=== PATIENT | male | born 1955 | race Caucasian/White ===

== ENCOUNTER → 2020-07-16 20:05 | Outpatient (CLI) | payer MEDICARE | END | disposition home or self-care (01) | LOC: D.LABREF 20:05 | PROVIDERS: ATTEND Podiatrist Foot & Ankle Surgery | DX: L03.116 Cellulitis of left lower limb (principal) ==

== ENCOUNTER 2021-04-23 05:40 | Day surgery (SDC) | payer MEDICARE ==
[2021-04-21 11:02] LABS: BASOPHILS 0.7 % (0-2); EOSINOPHILS 0.3 % (0-7); HEMOGLOBIN 15.1 g/dL (13.5-17.5); LYMPHOCYTES 12.2 % (15-50); MCH 30.2 pg (26.0-34.0); MCHC 33.6 g/dL (31.0-37.0); MCV 89.9 fL (80.0-100.0); MEAN PLATELET VOLUME 6.4 fL (7.4-10.4); MONOCYTES 8.1 % (2-11); NEUTROPHILS 78.7 % (40-80); PLATELET COUNT 382 10x3/uL (130-400); RDW 13.1 % (11.5-14.5); WBC 8.9 10x3/uL (4.8-10.8)
[2021-04-21 11:08] LABS: CALC OSMOLALITY 281 mosm/kg (275-300); CALCIUM 8.6 mg/dL (8.5-10.1); CARBON DIOXIDE 29.6 mmol/L (21.0-32.0); CHLORIDE - SERUM 104 mmol/L (98-107); GLUCOSE 113 mg/dL (74-106); POTASSIUM - SERUM 4.1 mmol/L (3.5-5.1); SODIUM 141 mmol/L (136-145); UREA NITROGEN 13 mg/dL (7-18); eGFR NON AFRICAN AMERICAN 79 mL/min (90-120)
[~2021-04-23] VITALS: Ht 188 cm; Wt 97.5 kg
[~2021-04-23 05:40] MED LIST: ADALAT CC90 MG PO; FUROSEMIDE20 MG PO; LOPRESSOR25 MG PO; POTASSIUM CHLO10 ME1 PO; PRAVASTATIN SOD10 MG PO
[2021-04-23] MEDS ORDERED: LISINOPRIL5 MG PO (06:15)
[2021-04-23 06:20] VITALS: BP 131/75; Ht 188 cm; Wt 97.5 kg
--- NOTE | 2021-04-23 10:11 | NUR ---
0950 IV DC'D. CATHETER TIP INTACT. NO BLEEDING AT SITE. COBAN DRESSING APPLIED. [id number] DISCHARGE INSTRUCTIONS REVIEWED WITH PT WHO VOICES UNDERSTANDING OF INSTRUCTIONS.
== END 2021-04-23 10:00 | disposition home or self-care (01) ==
LOC: D.OPS 05:40
PROVIDERS: Anesthesiology; ATTEND Podiatrist Foot & Ankle Surgery
DX: M25.775 Osteophyte, left foot (principal); I10 Essential (primary) hypertension